=== PATIENT | male | born 1980 | race Caucasian/White ===

== ENCOUNTER 2018-08-26 05:29 | Emergency (ER) | payer OTHER ==
[~2018-08-26] VITALS: Ht 177.8 cm; Wt 78.0 kg
[2018-08-26 05:34] VITALS: Ht 177.8 cm; Wt 78.0 kg
[2018-08-26 06:30] LABS: BASOPHIL % 0.1 % (0-2); CALCIUM 8.6 mg/dL (8.5-10.1); CARBON DIOXIDE 26.9 mmol/L (21-32); CHLORIDE SERUM 102 mmol/L (98-107); CREATININE SERUM 1.1 mg/dL (0.7-1.3); GFR1 > 60 mL/min; GLUCOSE SERUM 109 mg/dL (74-106); PLATELET COUNT 178 x10^3mcL (130-400); POTASSIUM SERUM 3.7 mmol/L (3.5-5.1); RED CELL DISTRIBUTION WIDTH 12.8 % (11.5-14.5); SODIUM SERUM 138 mmol/L (136-145)
[2018-08-26 06:35] LABS: ALBUMIN 3.8 g/dL (3.4-5.0); ALKALINE PHOSPHATASE 70 U/L (46-116); ALT/SGPT 17 U/L (16-63); AST/SGOT 14 U/L (15-37); BILIRUBIN TOTAL 1.04 mg/dL (0.20-1.00); LIPASE 465 IU/L (73-393); TOTAL PROTEIN, SERUM 6.9 g/dL (6.4-8.2)
[2018-08-26 08:39] VITALS: BP 129/64
== END 2018-08-26 08:39 | disposition home or self-care (01) ==
LOC: ED 05:29
PROVIDERS: Emergency Medicine
DX: R10.31 Right lower quadrant pain (principal); R11.2 Nausea with vomiting, unspecified; R50.9 Fever, unspecified; M19.90 Unspecified osteoarthritis, unspecified site
CPT/HCPCS: J1885; J2270; J2405; J7030

== ENCOUNTER 2019-01-08 20:16 | Emergency (ER) | payer OTHER ==
[~2019-01-08] VITALS: Ht 177.8 cm; Wt 77.1 kg
[2019-01-08 20:21] VITALS: Ht 177.8 cm; Wt 77.1 kg
[2019-01-08 21:37] VITALS: BP 135/77
== END 2019-01-08 21:37 | disposition home or self-care (01) ==
LOC: ED 20:16
DX: S93.402A Sprain of unspecified ligament of left ankle, initial encounter (principal); Z98.890 Other specified postprocedural states; W21.07XA Struck by softball, initial encounter; Y93.64 Activity, baseball; Y92.89 Other specified places as the place of occurrence of the external cause; Y99.8 Other external cause status
CPT/HCPCS: Q0092

== ENCOUNTER 2019-06-24 17:14 | Inpatient (IN) | payer BC ==
[~2019-06-24] VITALS: Ht 177.8 cm; Wt 81.6 kg
[2019-06-24 17:15] VITALS: Ht 177.8 cm; Wt 81.6 kg
[2019-06-24 17:44] LABS: BASOPHIL % 0.2 % (0-2); PLATELET COUNT 237 x10^3mcL (130-400); RED CELL DISTRIBUTION WIDTH 12.4 % (11.5-14.5)
[2019-06-24 17:46] LABS: CALCIUM 8.8 mg/dL (8.5-10.1); CARBON DIOXIDE 23.9 mmol/L (21-32); CHLORIDE SERUM 105 mmol/L (98-107); GFR1 > 60 mL/min; GLUCOSE SERUM 102 mg/dL (74-106); POTASSIUM SERUM 3.2 mmol/L (3.5-5.1); SODIUM SERUM 140 mmol/L (136-145)
[2019-06-24 17:50] LABS: ALBUMIN 4.4 g/dL (3.4-5.0); ALKALINE PHOSPHATASE 84 U/L (46-116); ALT/SGPT 18 U/L (16-63); AMYLASE 99 U/L (25-115); AST/SGOT 17 U/L (15-37); BILIRUBIN TOTAL 0.5 mg/dL (0.20-1.00); LIPASE 175 IU/L (73-393); TOTAL PROTEIN, SERUM 7.4 g/dL (6.4-8.2)
[2019-06-24 18:53] LABS: microscopic required? NO
[2019-06-24 19:32] LABS: urine erythrocyte NEGATIVE (NEGATIVE)
[2019-06-24 23:07] VITALS: BP 108/64
[2019-06-25 06:34] VITALS: BP 112/64
[2019-06-25 07:25] LABS: PLATELET COUNT 197 x10^3mcL (130-400); RED CELL DISTRIBUTION WIDTH 12.5 % (11.5-14.5)
[2019-06-25 07:39] LABS: BASOPHIL % 0 % (0-2); CHLORIDE SERUM 106 mmol/L (98-107); CREATININE SERUM 0.9 mg/dL (0.7-1.3); GFR1 > 60 mL/min; GLUCOSE SERUM 120 mg/dL (74-106); MAGNESIUM 1.7 mg/dL (1.8-2.4); POTASSIUM SERUM 4.3 mmol/L (3.5-5.1); SODIUM SERUM 140 mmol/L (136-145)
[2019-06-25 07:54] LABS: PHOSPHOROUS 3.9 mg/dL (2.5-4.9)
[2019-06-25 09:12] VITALS: BP 100/58
[2019-06-25] MEDS ORDERED: TOR10 PO (10:25)
[2019-06-25] MEDS ORDERED: KEFLEX500 M1 PO (10:33)
[2019-06-25 12:13] VITALS: BP 114/80
[2019-06-25 14:07] VITALS: BP 114/80
== END 2019-06-25 15:00 | disposition home or self-care (01) | DRG 343 ==
LOC: ED 17:14 → DU 19:50 → MU 06-25 09:28
PROVIDERS: Emergency Medicine; Surgery; ADMIT General Practice
PROC: 0DTJ4ZZ Resection of Appendix, Percutaneous Endoscopic Approach (ICD-10-PCS; principal; 2019-06-24 20:45)
DX: K35.80 Unspecified acute appendicitis (principal); K43.9 Ventral hernia without obstruction or gangrene; E87.6 Hypokalemia; E83.42 Hypomagnesemia; Z72.89 Other problems related to lifestyle
CPT/HCPCS: G0378; J0295; J1170; J1885; J2270; J2405; J2543; J2765; J3010; J3490; J7030; Q0092